=== PATIENT | male | born 1990 | race Caucasian/White ===

== ENCOUNTER 2018-07-01 14:26 | Emergency (ER) | payer OTHER, SELFPAY ==
--- NOTE | 2018-07-01 14:30 | DI.RAD.S_ITS ---
PROCEDURE: XR ANKLE RT MIN 3V INDICATIONS: right ankle pain TECHNIQUE: 3 views of the ankle were acquired. COMPARISON: None. FINDINGS: Bones: No fractures or dislocations. Ankle mortise is normally aligned. No suspicious bony lesions. Soft tissues: No tibiotalar joint effusion. IMPRESSION: No acute fracture or dislocation of the right ankle. Dictated by: Ezekiel Pierce M.D. on 07/01/2018 at 16:14 Approved by: Ezekiel Pierce M.D. on 07/01/2018 at 16:15
[2018-07-01 14:31] VITALS: BP 151/98; PULSE 81; RESP 16; TEMP 37; O2SAT 97; BMI 29.5
--- NOTE | 2018-07-01 15:05 | ED_ITS ---
HPI - Extremity Injury (Lower) <ERIKA Ashley - Last Filed: 07/01/18 17:57> General Chief Complaint: Extremity Injury, Lower Stated Complaint: RT ANKLE PAIN Time Seen by Provider: 07/01/18 15:05 Source: patient Mode of arrival: ambulatory Limitations: no limitations History of Present Illness HPI Narrative: twisted R ankle stepping off porch, this am, heard pop, isolated injury to ankle complaint: ankle injury Injury: Right: ankle Type of Injury: other (twisted) Place: home Severity: moderate Relieving factors: nothing Exacerbating factors: weight bearing and movement Context: walking Associated symptoms: snap/pop sensation, swelling, able to partially bear weight and ambulatory Other symptoms: none Related Data Previous Rx's Medication Instructions Recorded tramadol [Ultram] 50 mg PO Q6H PRN #20 tab 07/01/18 Allergies Allergy/AdvReac Type Severity Reaction Status Date / Time No Known Drug Allergies Allergy Verified 07/01/18 14:39 Review of Systems <ERIKA Ashley - Last Filed: 07/01/18 17:57> Review of Systems All systems reviewed & are unremarkable except as noted in HPI and below Constitutional Reports as per HPI and Reports system reviewed and no additional complaints, except as docu Musculoskeletal Reports as per HPI, Reports abnormal gait, Denies deformity, Reports limited range of motion, Denies muscle weakness and Denies numbness Integumentary/Breasts Reports as per HPI, Denies unusual bruising and Denies wounds Neurologic Reports abnormal gait, Denies focal weakness and Denies numbness Exam <ERIKA Ashley - Last Filed: 07/01/18 17:57> Initial Vital Signs Initial Vital Signs: Vital Signs Temperature 98.6 F 07/01/18 14:31 Pulse Rate 81 07/01/18 14:31 Respiratory Rate 16 07/01/18 14:31 Blood Pressure 151/98 H 07/01/18 14:31 Pulse Oximetry 97 07/01/18 14:31 Const General: cooperative, healthy appearing, comfortable and well developed Nutritional Appearance: average body habitus Orientation: alert, awake and oriented x3 Resp Effort & Inspection: normal respiratory effort and able to speak in complete sentences Back/Spine/Pelvis Cervical Spine: cervical ROM normal Thoracic/Lumbar Spine: thoraco-lumbar ROM limited Skin General: no rashes or lesions noted, elasticity normal, turgor normal and warm Neuro General: alert, awake and oriented x3 Cranial Nerves: CN's II-XI intact bilaterally Cognition: normal cognition Speech: speech normal Motor: muscle tone normal throughout Sensory Exam: no sensory deficits noted Extrem Right upper extremity: full ROM Left upper extremity: full ROM Right lower extremity: normal capillary refill and ankle Details: tenderness ( lateral malleolus), swelling (mild) and abnormal ROM (decreased rom secondary to pain) Left lower extremity: full ROM Psych Appearance: grossly normal and well kempt Mental Status: mental status grossly normal Speech and Movement: speech and movement normal Mood: congruent mood Affect: normal affect Attitude: cooperative Thought Process: normal Thought Content: normal Judgment: judgment good <Karina Scott DO - Last Filed: 07/02/18 08:15> Initial Vital Signs Initial Vital Signs: Vital Signs Temperature 98.6 F 07/01/18 14:31 Pulse Rate 81 07/01/18 14:31 Respiratory Rate 16 07/01/18 14:31 Blood Pressure 151/98 H 07/01/18 14:31 Pulse Oximetry 97 07/01/18 14:31 Course <ERIKA Ashley - Last Filed: 07/01/18 17:57> Course Narrative: xrays results and dc plan discussed, PRACHI method Orders Ordered: Discontinued Medications Hydrocodone Bitart/Acetaminophen ([place] 5/325) 1 tab PO NOW ONE Stop: 07/01/18 15:37 Last Admin: 07/01/18 15:49 Dose: 1 tab Vital Signs - 8 hr 07/01/18 14:31 07/01/18 16:50 Temperature 98.6 F Pulse Rate 81 78 Respiratory Rate 16 17 Blood Pressure 151/98 H Blood Pressure [Right Arm] 138/89 Pulse Oximetry 97 98 <Karina Scott DO - Last Filed: 07/02/18 08:15> Orders Ordered: Discontinued Medications Hydrocodone Bitart/Acetaminophen ([place] 5/325) 1 tab PO NOW ONE Stop: 07/01/18 15:37 Last Admin: 07/01/18 15:49 Dose: 1 tab Vital Signs - 8 hr 07/01/18 14:31 07/01/18 16:50 Temperature 98.6 F Pulse Rate 81 78 Respiratory Rate 16 17 Blood Pressure 151/98 H Blood Pressure [Right Arm] 138/89 Pulse Oximetry 97 98 MDM - Extremity Injury (Lower) <ERIKA Ashley - Last Filed: 07/01/18 17:57> Imaging Data ankle: Radiologist's impression: [address] [address] XRay Report Signed Patient: ANITA BOTELLO RMR#: [id number] : 1990Acct:[id number] Age/Sex: 28 / MDate of Service: 07/01/18 Loc: ED Accession Number: [id number] Procedure: XR ankle RT min 3V Ordering Provider: Karina Scott D.O. PROCEDURE: XR ANKLE RT MIN 3V INDICATIONS: right ankle pain TECHNIQUE: 3 views of the ankle were acquired. COMPARISON: None. FINDINGS: Bones: No fractures or dislocations. Ankle mortise is normally aligned. No suspicious bony lesions. Soft tissues: No tibiotalar joint effusion. IMPRESSION: No acute fracture or dislocation of the right ankle. Dictated by: Ezekiel Pierce M.D. on 07/01/2018 at 16:14 Approved by: Ezekiel Pierce M.D. on 07/01/2018 at 16:15 Discharge Plan Departure Patient Disposition: Home Clinical Impression: Ankle sprain and strain Discharge Date/Time: 07/01/18 16:56 Interventions: ED Discharge Assessment Last Done: 07/01/18 16:55 Instructions: Ankle Sprain, How to Apply an Zuhair Wrap Prescriptions: New tramadol [Ultram] 50 mg tablet 50 mg PO Q6H PRN (Reason: pain) Qty: 20 RF: 0 Referrals: Otis Reynoso PA-C [[employer]] - Jhon Laguna MD [Physician] - Edward Hunter PA-C [[employer]] - (in 5-7 days as needed) <DO Ana Green Last Filed: 07/02/18 08:15> Cosign ED Attending Cosignature Attestation: I was immediately available in the department for consultation. Documentation has been reviewed. I agree with assessment and plan.
[2018-07-01] MEDS: HYDROCODONE/ACET 5/325 TABLET 1 TAB PO (15:49)
[2018-07-01 16:50] VITALS: BP 138/89; PULSE 78; RESP 17; O2SAT 98
== END 2018-07-01 16:56 | disposition home or self-care (01) ==
PROVIDERS: Emergency Provider Nurse Practitioner
DX: S93.401A Sprain of unspecified ligament of right ankle, initial encounter (principal); W18.43XA Slipping, tripping and stumbling without falling due to stepping from one level to another, initial encounter
CPT/HCPCS: 73610; 99282; 99283